=== PATIENT | male | born 1930 | race African-American/Black ===

== ENCOUNTER 2016-07-29 08:03 | Outpatient (CLI) | payer MEDICARE ==
[2016-07-29 08:49] LABS: ALT (SGPT) 21 U/L (0-55); AST (SGOT) 17 U/L (5-34); Albumin 3.8 g/dL (3.4-4.8); Alkaline Phosphatase 91 U/L (40-150); Anion Gap 17 mmol/L (10-20); BUN (Urea Nitrogen) 11 mg/dL (8.4-25.7); Bilirubin, Total 1.2 mg/dL (0.2-1.2); Calc. Creatinine Clearance 0 mL/min (70-130); Carbon Dioxide 21 mmol/L (23-31); Cardiac Risk 2.4 (Less than 4.5); Chloride 105 mmol/L (98-107); Cholesterol 139 mg/dL (< 200 Desired); Estimated GFR-MDRD Greater than 90; Globulin 2.8 g/dL (2.4-3.5); Glucose 145 mg/dL (83-110); HDL Cholesterol 58 mg/dL (>60 Neg Risk); LDL Cholesterol, Calculated 69 mg/dL; Potassium 4.4 mmol/L (3.5-5.1); Protein, Total 6.6 g/dL (5.8-8.1); Sodium 139 mmol/L (136-145); Triglycerides 59 mg/dL (Less than 150)
== END 2016-07-29 08:04 | disposition home or self-care (01) ==
LOC: MADLAB 08:03
PROVIDERS: ATTEND Internal Medicine Cardiovascular Disease
DX: E78.00 Pure hypercholesterolemia, unspecified (principal)
CPT/HCPCS: 36415; 80053; 80061

== ENCOUNTER 2017-02-17 08:58 | Outpatient (CLI) | payer MEDICARE ==
[2017-02-17 09:52] LABS: ALT (SGPT) 14 U/L (8-55); AST (SGOT) 15 U/L (5-34); Albumin 3.5 g/dL (3.4-4.8); Alkaline Phosphatase 77 U/L (40-150); Anion Gap 13 mmol/L (10-20); BUN (Urea Nitrogen) 11 mg/dL (8.4-25.7); Bilirubin, Total 0.8 mg/dL (0.2-1.2); Calc. Creatinine Clearance 0 mL/min (70-130); Calcium 8.8 mg/dL (7.8-10.44); Carbon Dioxide 26 mmol/L (23-31); Cardiac Risk 2.8 (Less than 4.5); Chloride 107 mmol/L (98-107); Cholesterol 155 mg/dl (< 200 Desired); Estimated GFR-MDRD Greater than 90; Globulin 3.1 g/dL (2.4-3.5); Glucose 114 mg/dL (83-110); HDL Cholesterol 55 mg/dL (>60 Neg Risk); LDL Cholesterol, Calculated 83 mg/dL; Protein, Total 6.6 g/dL (5.8-8.1); Sodium 142 mmol/L (136-145); Triglycerides 87 mg/dL (Less than 150)
== END 2017-02-17 08:59 | disposition home or self-care (01) ==
LOC: MADLAB 08:58
PROVIDERS: ATTEND Internal Medicine Cardiovascular Disease
DX: E78.00 Pure hypercholesterolemia, unspecified (principal)
CPT/HCPCS: 36415; 80053; 80061

== ENCOUNTER 2019-08-11 23:57 | Emergency (ER) | payer MEDICARE ==
[2019-08-12 01:38] LABS: Bilirubin Negative (Negative); Blood, Urine Moderate (Negative); Clarity Slightly Cloudy (Clear); Glucose, Urine (Dipstick) Negative (Negative); Leukocyte Moderate (Negative); Nitrite Positive (Negative); Protein, Urine (Dipstick) 100 mg/dL (Neg-Trace)
[2019-08-12 01:46] LABS: Bacteria/HPF 4+ HPF (None Seen); RBC/HPF 21-50 HPF (0-3); Squamous Epithelial 0-3 HPF (0-3); WBC/HPF 21-50 HPF (0-3)
[2019-08-12] MEDS ORDERED: Ciprofloxacin 500 MG TAB ONE (02:53)
--- NOTE | 2019-08-12 08:30 | CT ---
PRELIMINARY REPORT/[facility]/EMERGENCY AFTER HOURS PROCEDURE: EXAM: CT Abdomen and Pelvis Without Intravenous Contrast CLINICAL HISTORY: LEFT FLANK PAIN WITH HEMATURIA HX OF RENAL STONES AND PROSTATE CANCER SX LITHOTRIPSIES AND PROSTATE CTOMY TECHNIQUE: Axial computed tomography images of the abdomen and pelvis without intravenous contrast. Coronal and sagittal reformatted images are provided. Exam DLP [id number]. CONTRAST: None. COMPARISON: None provided. FINDINGS: LUNG BASES: Small bilateral pleural effusions. The heart is normal size. Coronary artery calcificat ions. LIVER: Unremarkable. GALLBLADDER AND BILE DUCTS: Status post cholecystectomy. PANCREAS: Unremarkable. SPLEEN: Unremarkable. ADRENAL GLANDS: Unremarkable. KIDNEYS, URETERS, AND BLADDER: Bilateral renal perinephric stranding. Moderate left hydronephrosis an d hydroureter. Urinary bladder is diminutive. STOMACH AND BOWEL: No obstruction. No wall thickening. No CT evidence of colitis or acute diverticuli tis. APPENDIX: No CT evidence for appendicitis. PERITONEUM: No free fluid. No free air. LYMPH NODES: No lymphadenopathy. REPRODUCTIVE: Post surgical changes from radical prostatectomy. VASCULATURE: Multifocal vascular calcifications. No aneurysm. ABDOMINAL WALL AND SOFT TISSUES: Unremarkable. BONES: Innumerable sclerotic lesions within the visible spine, ribs and bony pelvis. Additional multi level degenerative changes in the spine and hips. IMPRESSION: 1. Moderate left hydronephrosis and hydroureter. This extends to the distal left ureter at the urin [place] bladder where there is focal wall thickening. Neoplasm is not excluded. Consider direct visuali zation. Also correlate for superimposed urinary tract infection. 2. Postsurgical changes from prostatectomy. Diffuse sclerotic lesions within the bones are concerni ng for metastatic disease, likely prostate. This can be confirmed with bone scan. 3. Bilateral small pleural effusions. ELECTRONICALLY SIGNED BY: Ren Samuel M.D. Aug 12, 2019 2:59:35 AM P[employer]MENT SUPPLIER This report is intended for review by the ordering physician only, in accordance of law. If you recei ve this report in error, please call [facility] at [phone]. FINAL REPORT EMERGENCY AFTER HOURS ABDOMEN AND PELVIC CT SCAN WITHOUT IV CONTRAST: Date: 08/12/2019 Time: 0222 hours COMPARISON: 04/11/2017. FINDINGS: Evidence for blastic bone metastasis. Postop changes in the pelvis, evidence of prior prostatectomy. Focal thickening of the posterior wall of the urinary bladder, more so on the left side, with fairly marked hydroureteronephrosis. There is some right renal vascular calcification, but no overt obstruct ing calculus. IMPRESSION: Bone metastasis. Left hydroureteronephrosis with some focal thickening in the left posterolateral uri nary bladder wall. Small bilateral pleural effusions. Other findings above. This report is in agreement with preliminary report by [facility]. POS: OFF
--- NOTE | 2019-08-12 08:45 | RAD ---
CHEST 1 VIEW AND ABDOMEN 2 VIEWS: HISTORY: Abdominal pain. FINDINGS: Postop midline sternotomy. Slight blunting of the costophrenic angles suggesting small pleural effus ions. No overt calculus. There is some gas and minimal fluid in nondilated small bowel as well a s scattered fecal material throughout the colon without evidence for large or small bowel obstruction or free intraperitoneal air. IMPRESSION: Probable small pleural effusions. No bowel obstruction or other acute process. Extensive postop franco nges in the pelvis. Scattered sclerotic densities within the pelvis and lumbar spine, evidence for b one metastasis. POS: OFF
== END 2019-08-12 06:40 | disposition home or self-care (01) ==
LOC: MADERS 23:57
DX: N39.0 Urinary tract infection, site not specified (principal); C79.82 Secondary malignant neoplasm of genital organs; N13.2 Hydronephrosis with renal and ureteral calculous obstruction; Z79.891 Long term (current) use of opiate analgesic; Z79.899 Other long term (current) drug therapy
CPT/HCPCS: 74022; 74176; 81003; 81015

== ENCOUNTER 2020-04-28 11:47 | Emergency (ER) | payer MEDICARE ==
[2020-04-28] MEDS ORDERED: Sodium Chloride 0.9% 1,000 ML ONE (12:32)
[2020-04-28 13:04] LABS: ALT (SGPT) 23 U/L (8-55); AST (SGOT) 63 U/L (5-34); Albumin 3.4 g/dL (3.4-4.8); Alkaline Phosphatase 273 U/L (40-110); Anion Gap 15 mmol/L (10-20); BUN (Urea Nitrogen) 15 mg/dL (8.4-25.7); Bilirubin, Total 1.6 mg/dL (0.2-1.2); Calc. Creatinine Clearance 0 mL/min (70-130); Calcium 8.5 mg/dL (7.8-10.44); Carbon Dioxide 23 mmol/L (23-31); Chloride 98 mmol/L (98-107); Estimated GFR-MDRD Greater than 90; Globulin 2.6 g/dL (2.4-3.5); Glucose 136 mg/dL (83-110); Hemoglobin 11.7 g/dL (14.0-18.0); Hypochromia SLIGHT = 6-15 cells (100X) (0-5/hpf); Large Platelets SLIGHT; MDiff Complete? YES; Mean Corpuscular HGB CONC 32.8 g/dL (32.0-36.0); Mean Corpuscular Hemoglobin 30.1 pg (27.0-31.0); Mean Corpuscular Volume 91.9 fL (78.0-98.0); Mean Platelet Volume 10.9 fL (7.4-10.4); Platelet Count 82 thou/uL (130-400); Platelet Morphology Comment Appears Decreased; RBC Distribution Width 11.1 % (11.5-14.5); Sodium 132 mmol/L (136-145); White Blood Cell (WBC) Count 0.4 thou/uL (4.8-10.8)
--- NOTE | 2020-04-28 13:09 | RAD ---
XR Chest 1 View Portable History: Tachycardia Comparison: Radiograph 2009 Findings: Multifocal high density foci are seen projecting over the left hemithorax ribs and scapula. No pneumothorax. No effusion. Heart size mildly enlarged. No evidence for pneumonia. Impression: Concerning for progressive sclerotic osseous metastatic disease.
--- NOTE | 2020-04-28 13:12 | RAD ---
RIGHT HIP 2 VIEWS: Date: 04/28/2020 HISTORY: Hip injury. FINDINGS: The bones are demineralized. I do not see any signs of any femoral neck fracture. No obvious sacral f racture. If there is clinical index of suspicion of fracture, CT would be recommended given the degre e of bony demineralization. IMPRESSION: No definite signs of acute injury. 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 Pos top changes which appear to be related to previous prostatectomy. POS: OFF
[2020-04-28 13:24] LABS: CKMB 9.4 ng/mL (0-6.6)
[2020-04-28] MEDS ORDERED: Sodium Chloride 0.9% 100 ML ONE (14:36)
[2020-04-28] MEDS ORDERED: Diltiazem 125 MG/25 ML ONE (14:36)
[2020-04-28 17:45] LABS: CKMB 6.9 ng/mL (0-6.6)
== END 2020-04-28 19:35 | disposition short-term general hospital (02) ==
LOC: MADERS 11:47
DX: S70.01XA Contusion of right hip, initial encounter (principal); I48.91 Unspecified atrial fibrillation; Z79.899 Other long term (current) drug therapy; W06.XXXA Fall from bed, initial encounter
CPT/HCPCS: 36415; 71045; 80053; 82553; 83880; 84484; 85025; 93005; 96365; 96366; 96376; J3490; J7050